=== PATIENT | male | born 1980 | race Caucasian/White ===

== ENCOUNTER 2017-01-02 09:44 | Emergency (ER) | payer OTHER ==
[~2017-01-02] VITALS: Ht 172.7 cm; Wt 113.5 kg
[2017-01-02 09:50] VITALS: Ht 172.7 cm; Wt 113.5 kg
[2017-01-02] MEDS ORDERED: IBUPROFEN 800 MG TAB PO ONE (11:00)
--- NOTE | 2017-01-02 11:22 | RADRPT ---
PROCEDURE: Right wrist x-ray CLINICAL INDICATION: pain TECHNIQUE: AP, lateral and oblique views of the wrist were obtained. COMPARISON: None FINDINGS: There is normal mineralization. No acute fracture or dislocation is seen. There is no significant joint space narrowing. There is a tiny osteophyte in the distal ulna. There is no significant soft tissue swelling. RPTAT: AA IMPRESSION: Tiny osteophyte in the distal ulna. No significant joint space narrowing. No acute fracture. .Michael Paul MD, Date Time Electronically viewed and signed by .Michael Paul MD, on 01/02/2017 11:22 .S/
--- NOTE | 2017-01-02 11:23 | RADRPT ---
PROCEDURE: XR right shoulder. CLINICAL INDICATION: Pain TECHNIQUE: Axillary, Internal and external rotation views of the right shoulder were performed. COMPARISON: None. FINDINGS: There is normal osseous mineralization and alignment. No acute fracture or osseous lesion is identified. There are normal joints without evidence of arthritis or dislocation. The soft tissues are unremarkable. RPTAT: AA IMPRESSION: Unremarkable right shoulder. .Michael Paul MD, MD Date Time Electronically viewed and signed by .Michael Paul MD, on 01/02/2017 11:23 .S/
[2017-01-02] MEDS ORDERED: ACETAMINOPHEN 500 MG TAB ONE (11:26)
[2017-01-02] MEDS ORDERED: IBUP-1542 PO (12:02)
--- NOTE | 2017-01-02 12:16 | ERD ---
ER Documentation Chief Complaint Date/Time DATE: 01/02/17 TIME: 12:13 Chief Complaint RT WRIST PAIN UNK ORIGIN X5 DAYS HPI 36-year-old male patient with no significant past medical history presents to the ED complaining of right wrist pain and right shoulder that started 5 days ago. Patient describes his shoulder pain as throbbing and rates it a 9 out of 10. States that his right wrist is most painful when he is moving it. 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 States that he has been doing this for a few years. Denies any loss of sensation , loss of range of motion, weakness, numbness or tingling, fever, chills, nausea , vomiting. ROS All systems reviewed and are negative except as per history of present illness. Medications Home Meds Active Scripts Ibuprofen* (Motrin*) 600 Mg Tab, 600 MG PO Q6, #30 TAB Prov:BRIANA TINAJERO Josh GRIJALVA 01/02/17 Allergies Allergies: Coded Allergies: No Known Drug Allergies (Verified Allergy, Unknown, 03/14/14) PMhx/Soc History of Surgery: No Anesthesia Reaction: No Hx Neurological Disorder: No Hx Respiratory Disorders: No Hx Cardiac Disorders: No Hx Psychiatric Problems: No Hx Miscellaneous Medical Probl: No Hx Alcohol Use: No Hx Substance Use: No Hx Tobacco Use: No Physical Exam Vitals Vital Signs Date Time Temp Pulse Resp B/P Pulse Ox O2 Delivery O2 Flow Rate FiO2 01/02/17 09:50 97.6 60 16 128/75 97 Physical Exam Const: [id number], well-nourished. In no acute distress. Head: Atraumatic, normocephalic Eyes: Normal Conjunctiva without injection ENT: Normal external ear, nose and mouth. Neck: Full range of motion. No meningismus. Resp: Clear to auscultation bilaterally. No wheezing, rhonchi, rales, or crackles. No accessory muscle use. No retractions. Cardio: Regular rate and rhythm, no murmurs Skin: No petechiae or rashes Back: No midline tenderness. No CVA tenderness. Ext: No cyanosis, or edema. Cap refill less than 2 seconds. Distal pulses intact bilaterally. Tenderness palpation of the right anterior humerus. Tenderness to palpation of the bilateral dorsal radius and ulna. No erythema or edema. No deformities. Neur: Awake and alert. Normal gait and coordination. Muscle strength 5/5. Sensation intact bilaterally. Psych: Normal Mood and Affect Results 24 hrs Current Medications Medications (Trade) Dose Ordered Sig/Francis Route PRN Reason Start Time Stop Time Status Last Admin Dose Admin Ibuprofen (Motrin) 800 mg ONCE ONCE PO 01/02/17 11:00 01/02/17 11:01 DC 01/02/17 11:27 Acetaminophen (Tylenol Tab) 500 mg STK-MED ONCE .ROUTE 01/02/17 11:26 01/02/17 11:27 DC Procedures/MDM 36-year-old male patient with no significant past medical history presents the ED complaining of right wrist, right shoulder pain that started 4 days ago. Patient is afebrile and nontoxic-appearing. Patient has normal vital signs. A right shoulder, right wrist x-ray was ordered to further evaluate patient. Patient was treated here in the ED with ibuprofen 800 mg with improvement. PROCEDURE: XR right shoulder. CLINICAL INDICATION: Pain TECHNIQUE: Axillary, Internal and external rotation views of the right shoulder were performed. COMPARISON: None. FINDINGS: There is normal osseous mineralization and alignment. No acute fracture or osseous lesion is identified. There are normal joints without evidence of arthritis or dislocation. The soft tissues are unremarkable. RPTAT: AA IMPRESSION: Unremarkable right shoulder. PROCEDURE: Right wrist x-ray CLINICAL INDICATION: pain TECHNIQUE: AP, lateral and oblique views of the wrist were obtained. COMPARISON: None FINDINGS: There is normal mineralization. No acute fracture or dislocation is seen. There is no significant joint space narrowing. There is a tiny osteophyte in the distal ulna. There is no significant soft tissue swelling. RPTAT: AA IMPRESSION: Tiny osteophyte in the distal ulna. No significant joint space narrowing. No acute fracture. Patient is neurovascularly intact. Patient likely has a sprain of the shoulder and wrist secondary to heavy lifting for many years. Patient's extremity symptoms have stabilized while they have been evaluated in the department and are appropriate for outpatient follow up. No evidence of fractures, dislocations , compartment syndrome, neurologic injury, vascular injury, open joint, open fracture, tendon laceration, septic arthritis, osteomyelitis, DVT, foreign body , or other emergent conditions. Discharge medications: Ibuprofen Follow up with primary care physician in 1-2 days. Instructed patient to return to the ED sooner for any worsening symptoms. Patient's questions were answered. Patient understood and agreed with discharge plan. Patient discharged stable. Departure Diagnosis: Primary Impression: Wrist pain Laterality: right Qualified Code: M25.531 - Right wrist pain Additional Impression: Shoulder pain Chronicity: unspecified Laterality: right Qualified Code: M25.511 - Right shoulder pain, unspecified chronicity Condition: Stable Patient Instructions: Wrist Sprain, Shoulder Pain (Uncertain Cause) Referrals: [facility] YOU HAVE RECEIVED A MEDICAL SCREENING EXAM AND THE RESULTS INDICATE THAT YOU DO NOT HAVE A CONDITION THAT REQUIRES URGENT TREATMENT IN THE EMERGENCY DEPARTMENT. FURTHER EVALUATION AND TREATMENT OF YOUR CONDITION CAN WAIT UNTIL YOU ARE SEEN IN YOUR DOCTORS OFFICE WITHIN THE NEXT 1-2 DAYS. IT IS YOUR RESPONSIBILITY TO MAKE AN APPOINTMENT FOR FOLOW-UP CARE. IF YOU HAVE A PRIMARY DOCTOR --you should call your primary doctor and schedule an appointment IF YOU DO NOT HAVE A PRIMARY DOCTOR YOU CAN CALL OUR PHYSICIAN REFERRAL HOTLINE AT IF YOU CAN NOT AFFORD TO SEE A PHYSICIAN YOU CAN CHOSE FROM THE FOLLOWING [facility] [address] [facility]. [facility] [address] [facility]. [facility] [address] [facility] [facility] [address] [facility] [facility] [address] [facility]. [facility]. [address] [facility]. [facility] YOU HAVE RECEIVED A MEDICAL SCREENING EXAM AND THE RESULTS INDICATE THAT YOU DO NOT HAVE A CONDITION THAT REQUIRES URGENT TREATMENT IN THE EMERGENCY DEPARTMENT. FURTHER EVALUATION AND TREATMENT OF YOUR CONDITION CAN WAIT UNTIL YOU ARE SEEN IN YOUR DOCTORS OFFICE WITHIN THE NEXT 1-2 DAYS. IT IS YOUR RESPONSIBILITY TO MAKE AN APPOINTMENT FOR FOLOW-UP CARE. IF YOU HAVE A PRIMARY DOCTOR --you should call your primary doctor and schedule and appointment IF YOU DO NOT HAVE A PRIMARY DOCTOR YOU CAN CALL OUR PHYSICIAN REFERRAL HOTLINE AT . IF YOU CAN NOT AFFORD TO SEE A PHYSICIAN YOU CAN CHOSE FROM THE FOLLOWING [facility] INSTITUTIONS: [facility] [address] [place] [address] [facility] [address] [place] [address] [facility] [address] [place] [address] [facility] Urgent Care 7 a.m.- 11 p.m. Every Day of the Week NO APPOINTMENT OR AUTHORIZATION NEEDED SO [facility] Hours: Mon-Fri 9:00 AM - 5:00 PM Additional Instructions: FOLLOW UP WITH YOUR PRIMARY CARE PHYSICIAN TOMORROW for a referral to see an orthopedic physician.Return to this facility if you are not improving as expected. BRIANA TINAJERO PA-C Jan 02, 2017 12:16
== END 2017-01-02 12:50 | disposition left against medical advice (07) ==
LOC: FTE 09:44
DX: M25.531 Pain in right wrist (principal); M25.511 Pain in right shoulder
CPT/HCPCS: 73030; 73110; Z7502; Z7610